=== PATIENT | male | born 1980 | race Caucasian/White ===

== ENCOUNTER 2019-04-29 23:43 | Emergency (ER) | payer OTHER ==
[~2019-04-29] VITALS: Ht 175.3 cm; Wt 90.9 kg
[2019-04-29 23:55] VITALS: BP 134/90
== END 2019-04-30 00:38 | disposition home or self-care (01) ==
LOC: ER 23:43
DX: R07.81 Pleurodynia (principal); F12.90 Cannabis use, unspecified, uncomplicated
CPT/HCPCS: 71046; 99283

== ENCOUNTER 2019-05-20 05:27 | Emergency (ER) | payer SELFPAY ==
[~2019-05-20] VITALS: Ht 177.8 cm; Wt 77.3 kg
[2019-05-20 05:29] VITALS: BP 148/99
== END 2019-05-20 05:42 ==
LOC: ER 05:28
DX: I10 Essential (primary) hypertension (principal); F10.10 Alcohol abuse, uncomplicated; F12.90 Cannabis use, unspecified, uncomplicated; Y90.9 Presence of alcohol in blood, level not specified
CPT/HCPCS: 99283

== ENCOUNTER 2019-07-21 20:52 | Emergency (ER) | payer OTHER ==
[~2019-07-21] VITALS: Ht 177.8 cm; Wt 79.0 kg
[2019-07-21 20:56] VITALS: BP 157/87
== END 2019-07-21 21:34 ==
LOC: ER 20:53
DX: Z02.89 Encounter for other administrative examinations (principal); F12.90 Cannabis use, unspecified, uncomplicated
CPT/HCPCS: 99283

== ENCOUNTER 2022-08-30 23:14 | Emergency (ER) | payer OTHER ==
[~2022-08-30] VITALS: Ht 177.8 cm; Wt 84.1 kg
[2022-08-30 23:15] VITALS: BP 148/93
[2022-08-30] MEDS ORDERED: LIDOcaine 1% w/EPI 1:100,000 30ml vial (MDV) IJ ONE (23:25)
--- NOTE | 2022-08-31 00:51 | NUR ---
DC TX ONLY
== END 2022-08-31 00:52 ==
LOC: ER 23:15
DX: S01.112A Laceration without foreign body of left eyelid and periocular area, initial encounter (principal); X58.XXXA Exposure to other specified factors, initial encounter; Y93.89 Activity, other specified; Y92.89 Other specified places as the place of occurrence of the external cause; Y99.8 Other external cause status
CPT/HCPCS: 12001; 12011; 99283